=== PATIENT | male | born 1985 | race Two or more races ===

== ENCOUNTER 2018-05-19 08:03 | Emergency (ER) | payer MEDICAID, OTHER ==
[~2018-05-19] VITALS: Ht 180.3 cm; Wt 95.3 kg
[2018-05-19] MEDS ORDERED: HYDROMORPHONE 1 MG/1 ML DISP.SYRIN IV ONE (08:15)
[2018-05-19] MEDS ORDERED: HYDROMORPHONE 1 MG/1 ML DISP.SYRIN ONE (08:20)
--- NOTE | 2018-05-19 08:24 | NUR ---
pt is in room #2a. dr patterson evaluated the pt.
[2018-05-19] MEDS ORDERED: PROPOFOL 100 ML ONE (08:42)
--- NOTE | 2018-05-19 08:42 | NUR ---
Dr Nixon(Ortho surgeon) paged per ER MD request, awaiting call back.
[2018-05-19] MEDS ORDERED: PROPOFOL 1,000 MG/100 ML BOTTLE IV ONE (08:45)
[2018-05-19 08:52] LABS: BASOPHILS # (AUTO) 0.1 K/uL (0.0-8.0); BASOPHILS % (AUTO) 0.9 % (0.0-2.0); EOSINOPHILS # (AUTO) 0.2 K/uL (0.0-0.7); EOSINOPHILS % (AUTO) 2.8 % (0.0-7.0); HEMATOCRIT 42.5 % (36.7-47.1); HEMOGLOBIN 14.7 g/dL (12.5-16.3); LYMPHOCYTES # (AUTO) 3.9 K/uL (20.0-40.0); LYMPHOCYTES % (AUTO) 55.1 % (20.5-51.5); MEAN CORPUSCULAR HEMOGLOBIN 31.4 uug (23.8-33.4); MEAN CORPUSCULAR HGB CONC 35 g/dL (32.5-36.3); MEAN CORPUSCULAR VOLUME 90.6 fL (73.0-96.2); MONOCYTES # (AUTO) 0.3 K/uL (2.0-10.0); MONOCYTES % (AUTO) 4.6 % (0.0-11.0); NEUTROPHILS # (AUTO) 2.6 K/uL (1.8-8.9); NEUTROPHILS % (AUTO) 36.6 % (38.5-71.5); PLATELET COUNT (AUTO) 314 K/uL (152-348); RED BLOOD CELL COUNT(AUTO) 4.69 MIL/uL (4.06-5.63); WHITE BLOOD COUNT (AUTO) 7.1 K/uL (3.6-10.2)
[2018-05-19 08:58] LABS: CREATININE 1.1 mg/dL (0.6-1.3); POTASSIUM 3.9 mmol/L (3.5-5.1)
--- NOTE | 2018-05-19 09:15 | NUR ---
Closed reduction of right ankle with procedural sedation was perforned by dr Montes. Pt tolerated to procedure without complications. See procedural report. At this time pt is awake , a/o x 4, can speak in full sentences, can move with all 4 extremities.
--- NOTE | 2018-05-19 10:19 | NUR ---
PT IS GOING TO BE TRANSFERED TO [facility]IA [facility] ACCORDING PT's INSURANCE REQUEST. CHUCKIE IS 30 MINUTES.
--- NOTE | 2018-05-19 11:05 | NUR ---
PT WAS TRANSFERED TO [facility]IA [facility]. REPORT WAS GIVEN TO EDUARDO CURIEL FROM [facility], AND TO AMBULANCE EMT.
== END 2018-05-19 11:16 | disposition short-term general hospital (02) ==
LOC: ER 08:03
DX: S82.841A Displaced bimalleolar fracture of right lower leg, initial encounter for closed fracture (principal); X50.0XXA Overexertion from strenuous movement or load, initial encounter; Y93.89 Activity, other specified; Y92.89 Other specified places as the place of occurrence of the external cause; Y99.8 Other external cause status
CPT/HCPCS: 27810; 36415; 73600; 73610; 73630; 80048; 85025; 85730; 86850; 86900; 86901; 96374; 99152; 99285; J1170; A4663; G0500; J3490; J7030